=== PATIENT | male | born 1995 | race Caucasian/White ===

== ENCOUNTER 2017-02-19 22:52 | Emergency (ER) | payer OTHER ==
[~2017-02-19] VITALS: Ht 180.3 cm; Wt 72.0 kg
[2017-02-19 23:02] VITALS: TEMP 36.8; Ht 180.3 cm; Wt 72.0 kg
[2017-02-19] MEDS ORDERED: ALBUT/IPRATROP 3MG/0.5MG NEB 3 ML VIAL INH STA (23:17)
--- NOTE | 2017-02-19 23:57 | EMERGENCY ROOM VISIT NOTE ---
History Report prepared by Deyanira: Lucy Macias Under the Supervision of: Dr. Tomas Bowman D.O. First contact with patient: 23:17 Chief Complaint: RESPIRATORY PROBLEMS Stated Complaint: CHEST PAIN, SOB, CHEMICAL INHALATION-WC History of Present Illness The patient is a 21 year old male who presents to the Emergency Room with complaints of constant respiratory difficulty beginning just [employer]. The patient states that he was at work tonight and mixed bleach and another chemical together. He reports that he has done this before and has never had an issue but tonight he inhaled the chemicals and has been having shortness of breath and chest pain since the incident. The patient complains of a cough. Source of History: patient Onset: just [employer] Position: other (respiratory) Quality: other (SOB) Timing: constant Associated Symptoms: + cough, + chest pain, + SOB Review of Systems See HPI for pertinent positives & negatives. A total of 10 systems reviewed and were otherwise negative. Past Medical & Surgical Medical Problems: (1) Asthma (2) No significant past surgical history Family History No pertinent family history stated. Social History Smoking Status: Current Every Day Smoker Alcohol Use: none Marital Status: single Occupation Status: employed Current/Historical Medications No Active Prescriptions or Reported Meds Allergies Coded Allergies: No Known Allergies (Unverified , 02/19/17) Physical Exam Vital Signs Date Time Temp Pulse Resp B/P (MAP) Pulse Ox O2 Delivery O2 Flow Rate FiO2 02/20/17 00:09 84 125/64 96 02/19/17 23:26 100 Room Air 02/19/17 23:02 36.8 84 18 121/75 99 Room Air Physical Exam CONSTITUTIONAL/VITAL SIGNS: Reviewed / noted above. GENERAL: Non-toxic in appearance. INTEGUMENTARY: Warm, dry, and [place]. HEAD: Normocephalic. EYES: without scleral icterus or trauma. ENT/OROPHARYNX: clear and moist. LYMPHADENOPATHY/NECK: Is supple without lymphadenopathy or meningismus. RESPIRATORY: Lungs clear and equal. CARDIOVASCULAR: Regular rate and rhythm. GI/ABDOMEN: Soft and nontender. No organomegaly or pulsatile mass. No rebound or guarding. Normal bowel sounds. EXTREMITIES: Warm and well perfused. BACK: No CVA tenderness. NEUROLOGICAL: Intact without focal deficits. PSYCHIATRIC: normal affect. MUSCULOSKELETAL: Normally developed with good muscle tone. Medical Decision & Procedures ER Provider Diagnostic Interpretation: Radiology results as stated below per my review: Chest X-Ray: No acute disease, no pneumothorax, no pneumonia. Medications Administered Medications (Trade) Dose Ordered Sig/Larisa Route Start Time Stop Time Status Last Admin Dose Admin Albuterol/ Ipratropium (Duoneb) 3 ml NOW STAT INH 02/19/17 23:17 02/19/17 23:18 DC 02/19/17 23:24 3 ML ECG Indication: chest pain Rate (beats per minute): 76 Rhythm: normal sinus Findings: no acute ischemic change, no ectopy ED Course 2317: Previous medical records were reviewed. The patient was evaluated in room B10. A complete history and physical examination was performed. 2317: Duoneb 3ml INH. 0002: On reevaluation, the patient is doing well. I discussed the results and findings with the patient. He verbalized agreement of the treatment plan. The patient was discharged home. Medical Decision the differential was considered includes acute myocardial infarction, acute coronary syndrome, myocarditis, pericarditis, pericardial effusions /tamponad, esophageal perforation, pulmonary embolism, pneumonia, pneumothorax, cardiomyopathy, congestive heart, anemia , COPD/asthma exacerbation. This is a 21-year-old male who presents to the ED with a chief complaint of shortness of breath. He also describes some chest discomfort. The symptoms started after he mixed some bleach and another cleaning supply called [employer]he[employer] away. He states that this created a gas that he inhaled. The patient denies any other significant symptoms. His physical exam reveals normal vital signs as well as normal breathing. His lungs are clear. Chest x-ray did not show acute disease. Sats are normal. He was treated with a DuoNeb treatment. On reassessment, his symptoms did improve some. He is felt to be stable for discharge and outpatient follow-up. His symptoms are likely related to a chemical irritation the lungs. Medication Reconcilliation Current Medication List: was personally reviewed by me Blood Pressure Screening Patient's blood pressure: Normal blood pressure Blood pressure disposition: Did not require urgent referral Impression Primary Impression: Exposure to chemical irritant Additional Impression: Dyspnea Scribe Attestation The scribe's documentation has been prepared under my direction and personally reviewed by me in its entirety. I confirm that the note above accurately reflects all work, treatment, procedures, and medical decision making performed by me. Departure Information Dispostion Home / Self-Care Prescriptions No Active Prescriptions or Reported Meds Referrals No Doctor, Assigned (PCP) Patient Instructions My [facility] Additional Instructions Anticipate improvement of symptoms over the next 12-24 hours. Return for any concerns or worsening. Problem Qualifiers
[2017-02-20 00:09] VITALS: BP 125/64; PULSE 84; O2SAT 96
--- NOTE | 2017-02-20 06:26 | DIAGNOSTIC IMAGING REPORT ---
CHEST ONE VIEW PORTABLE CLINICAL HISTORY: cough SHORTNESS OF BREATH. ATYPICAL CHEST PAIN. COMPARISON STUDY: No previous studies for comparison. FINDINGS: The cardiac and mediastinal contours are normal. There is no evidence of focal pulmonary consolidation. There is no evidence of failure. No pleural effusions are visualized.[ IMPRESSION: No active disease in the chest. Electronically signed by: Arnulfo Theodore M.D. 02/20/2017 6:25 AM Dictated Date/Time: 02/20/2017 6:25 AM
== END 2017-02-20 00:09 | disposition home or self-care (01) ==
LOC: C.EDB 22:54
DX: T54.91XA Toxic effect of unspecified corrosive substance, accidental (unintentional), initial encounter (principal); R06.00 Dyspnea, unspecified; J45.909 Unspecified asthma, uncomplicated; F17.210 Nicotine dependence, cigarettes, uncomplicated